=== PATIENT | male | born 2000 | race American Indian/Alaskan Native ===

== ENCOUNTER 2021-11-11 07:45 | Outpatient (CLI) | payer OTHER ==
--- NOTE | 2021-11-11 09:44 | XRay Report ---
LEFT HAND 3 VIEWS INDICATION: M79.642 PAIN IN LEFT HAND. COMPARISON: None. IMPRESSION: No osseous abnormality or joint pathology is detected. The soft tissues are unremarkabl e. Signer Name: Jorge A Redding Jr, MD Signed: 11/11/2021 9:39 AM Workstation Name: [id number]
== END 2021-11-11 07:46 | disposition home or self-care (01) ==
LOC: XRAY 07:45
PROVIDERS: ATTEND Orthopaedic Surgery
DX: M79.642 Pain in left hand (principal)